=== PATIENT | male | born 1975 | race Two or more races ===

== ENCOUNTER 2019-10-02 02:21 | Emergency (ER) | payer MEDICARE, OTHER ==
[~2019-10-02] VITALS: Ht 167.6 cm; Wt 67.1 kg
--- NOTE | 2019-10-02 02:30 | NUR ---
PT CAME TO THE ED C/O SUICIDAL IDEATION W A PLAN TO STAB HIMSELF. PT ALERT, AMBULATORY, RR EVEN AND UNLABORED ON RA W NAD NOTED. PT CONNECTED TO THE MONITOR AND POX. PT CHANGED INTO GOWN, ITEMS REMOVED. SUICIDE PRECAUTIONS IMPLEMENTED. SITTER AT BEDSIDE FOR SAFETY
--- NOTE | 2019-10-02 02:34 | NUR ---
URINE COLELCTED AND SENT TO LAB
--- NOTE | 2019-10-02 02:50 | NUR ---
Security called for wanding.
[2019-10-02 03:07] LABS: APPEARANCE,URINE Clear (CLEAR); BILIRUBIN,URINE Negative (NEGATIVE); BLOOD, URINE Negative Ery/uL (NEGATIVE); COLOR,URINE Yellow (YELLOW); KETONES,URINE Negative (NEGATIVE); LEUKOCYTE ESTERASE ,URINE Negative (NEGATIVE); NITRITE, URINE Negative (NEGATIVE); PH,URINE 7.5 (5.0-8.0); PROTEIN,URINE Negative (NEGATIVE); UGLUCOSE Negative (NEGATIVE); UROBILINOGEN,URINE 0.2 EU/dL (0.2)
[2019-10-02 03:14] LABS: CALCIUM, SERUM 9.4 mg/dL (8.5-10.1); CARBON DIOXIDE 35 mmol/L (21-32); CHLORIDE 97 mmol/L (98-107); CREATININE 0.9 mg/dL (0.6-1.3); GLUCOSE 110 mg/dL (74-106); POTASSIUM 4.3 mmol/L (3.5-5.1); SODIUM SERUM 136 mmol/L (136-145); UREA NITROGEN, BLOOD 18 mg/dL (7-18)
[2019-10-02 03:16] LABS: BASOPHILS % (AUTO) 0.4 % (0.0-2.0); EOSINOPHILS % (AUTO) 1.1 % (0.0-6.0); HEMATOCRIT 42 % (39-51); HEMOGLOBIN 14.1 g/dL (13.5-17.5); LYMPHOCYTES # (AUTO) 1.2 /CMM (0.8-4.8); LYMPHOCYTES % (AUTO) 11.8 % (20.0-44.0); MEAN CORPUSCULAR HGB CONC 34 g/dl (31.0-36.0); MEAN CORPUSCULAR VOLUME 91 fL (80-96); MONOCYTES # (AUTO) 0.7 /CMM (0.1-1.30); MONOCYTES % (AUTO) 6.7 % (2.0-12.0); PLATELET COUNT (AUTO) 275 /CMM (150-450); RED BLOOD CELL COUNT(AUTO) 4.63 MIL/uL (4.5-6.0)
[2019-10-02 03:18] LABS: ACETAMINOPHEN 0 ug/ml (10-30); ALANINE AMINOTRANSFERASE 43 U/L (12-78); ALBUMIN 3.3 g/dL (3.4-5.0); ALCOHOL, BLOOD < 3 mg/dL (0-0); ALKALINE PHOSPHATASE 67 U/L (46-116); ASPARTATE AMINOTRANSFERASE 49 U/L (15-37); BILIRUBIN,DIRECT 0.1 mg/dL (0.0-0.2); BILIRUBIN,TOTAL 0.5 mg/dL (0.2-1.0); SALICYLATE 0.8 mg/dL (2.8-20.0); TOTAL PROTEIN, SERUM 7.5 g/dL (6.4-8.2)
--- NOTE | 2019-10-02 04:25 | NUR ---
PT AWAKE, RESTING. PT MUMBLING AT BEDSIDE. NO ACUTE DISTRESS NOTED. VSS
--- NOTE | 2019-10-02 05:28 | NUR ---
CLINICALS AND FACESHEET FAXED TO [facility].
--- NOTE | 2019-10-02 05:53 | NUR ---
PT AWAKE, RESTING. PT MUMBLING AT BEDSIDE. NO ACUTE DISTRESS NOTED. VSS
--- NOTE | 2019-10-02 06:12 | NUR ---
RECEIVED CALL FROM [facility]TA[facility]. BEDS AVAILABLE AT 0900. AWAITING CALL FOR ACCEPTING
--- NOTE | 2019-10-02 06:58 | NUR ---
PT ASLEEP AND RESTING COMFORTABLY. NO ACUTE DISTRESS NOTED. VSS
--- NOTE | 2019-10-02 07:00 | NUR ---
PT ACCEPTED TO [facility]. UNIT [address] DR. DE LA FUENTE CHANDRAKANTSK CORE EXTRUDER FOR UNIT 2
--- NOTE | 2019-10-02 07:33 | NUR ---
REPORT GIVEN TO HASEEB CARRASCO RN
--- NOTE | 2019-10-02 07:34 | NUR ---
REPORT GIVEN TO SUGEY ARCHER FOR DAFNE
--- NOTE | 2019-10-02 08:20 | NUR ---
CALLED [facility] FOR TRANSPORT TO [facility]. ETA [phone].
[2019-10-02 09:12] VITALS: BP 124/70
--- NOTE | 2019-10-02 09:12 | NUR ---
breakfast tray provided to patient. tolerated well
--- NOTE | 2019-10-02 09:50 | NUR ---
[facility] UNIT 40 AT BEDSIDE FOR TRANSPORT. PT IN STABLE CONDITION.
--- NOTE | 2019-10-02 09:58 | NUR ---
Patient picked up by [facility] in stable condition. All belongings returned to the patient. Patient will be brought to [facility] is[facility] the care of Dr Wheatley
== END 2019-10-02 09:57 ==
LOC: ER 02:21
DX: R45.851 Suicidal ideations (principal); F32.9 Major depressive disorder, single episode, unspecified; F41.9 Anxiety disorder, unspecified; F20.9 Schizophrenia, unspecified
CPT/HCPCS: 36415; 80048; 80076; 80305; 80307; 80329; 81001; 85025; 99285; G0480; 81000-TC

== ENCOUNTER 2020-07-29 20:52 | Emergency (ER) | payer MEDICARE, OTHER ==
[~2020-07-29] VITALS: Ht 165.1 cm; Wt 68.0 kg
--- NOTE | 2020-07-29 21:25 | NUR ---
bibself +si plan to cut himself -hi. request to go to [facility]. pt aox4 rr even and unlabored. no sob noted. no nvd at this time. no acute distress noted. pt aware and agreed to plan of care. pt appears to be calm and cooperative.
--- NOTE | 2020-07-29 21:30 | NUR ---
urine collected. sent to lab
[2020-07-29 21:39] LABS: BILIRUBIN,URINE SMALL (NEGATIVE); COLOR,URINE YELLOW (YELLOW); LEUKOCYTE ESTERASE ,URINE NEGATIVE (NEGATIVE); NITRITE, URINE NEGATIVE (NEGATIVE); PROTEIN,URINE NEGATIVE (NEGATIVE); UGLUCOSE NEGATIVE (NEGATIVE); UROBILINOGEN,URINE 0.2 EU/dL (0.2)
--- NOTE | 2020-07-29 21:44 | NUR ---
lab with pt for blood draw.
[2020-07-29 21:47] LABS: BACTERIA,URINE None seen /HPF (None Seen); RBC,URINE 0-2 /HPF (0-2); SQUAMOUS EPITHELIAL CELL,UR 0-2 /HPF (None Seen); WBC,URINE 0-2 /HPF (0-3)
--- NOTE | 2020-07-29 21:54 | NUR ---
AROLDOID SWABBED, SENT TO LAB.
[2020-07-29 22:08] LABS: BASOPHILS % (AUTO) 0.7 % (0.0-2.0); EOSINOPHILS % (AUTO) 4.6 % (0.0-6.0); HEMATOCRIT 43 % (39-51); HEMOGLOBIN 14.6 g/dL (13.5-17.5); LYMPHOCYTES # (AUTO) 2.3 /CMM (0.8-4.8); LYMPHOCYTES % (AUTO) 35.1 % (20.0-44.0); MEAN CORPUSCULAR HGB CONC 34 g/dl (31.0-36.0); MEAN CORPUSCULAR VOLUME 91 fL (80-96); MONOCYTES # (AUTO) 0.7 /CMM (0.1-1.30); MONOCYTES % (AUTO) 10.5 % (2.0-12.0); NEUTROPHILS # (AUTO) 3.3 /CMM (1.8-8.9); NEUTROPHILS % (AUTO) 49.1 % (43.0-81.0); PLATELET COUNT (AUTO) 253 /CMM (150-450); WHITE BLOOD COUNT (AUTO) 6.7 K/uL (4.3-11.0)
[2020-07-29 22:22] LABS: ALANINE AMINOTRANSFERASE 62 U/L (12-78); ALBUMIN 3.4 g/dL (3.4-5.0); ALCOHOL, BLOOD 75 mg/dL (0-0); ALKALINE PHOSPHATASE 83 U/L (46-116); ASPARTATE AMINOTRANSFERASE 44 U/L (15-37); BILIRUBIN,DIRECT 0.2 mg/dL (0.0-0.2); BILIRUBIN,TOTAL 0.7 mg/dL (0.2-1.0); CARBON DIOXIDE 27 mmol/L (21-32); CHLORIDE 98 mmol/L (98-107); GLUCOSE 113 mg/dL (74-106); POTASSIUM 3.6 mmol/L (3.5-5.1); SODIUM SERUM 136 mmol/L (136-145); TOTAL PROTEIN, SERUM 7.4 g/dL (6.4-8.2); UREA NITROGEN, BLOOD 17 mg/dL (7-18)
[2020-07-29 22:24] LABS: ACETAMINOPHEN < 10 ug/ml (10-30)
--- NOTE | 2020-07-29 23:25 | NUR ---
Facesheet and clinicals faxed to [facility].
[2020-07-30 00:33] VITALS: BP 138/68
--- NOTE | 2020-07-30 03:30 | NUR ---
Patient eloped from facility. ER MD notified.
== END 2020-07-30 03:30 | disposition left against medical advice (07) ==
LOC: ER 20:55
DX: R45.851 Suicidal ideations (principal); F10.10 Alcohol abuse, uncomplicated; Y90.3 Blood alcohol level of 60-79 mg/100 ml; Z20.822 Contact with and (suspected) exposure to COVID-19; F41.9 Anxiety disorder, unspecified; F20.9 Schizophrenia, unspecified
CPT/HCPCS: 36415; 80048-TC; 80076-TC; 81001; 85025-TC; C9803; G0480

== ENCOUNTER 2020-08-20 18:43 | Emergency (ER) | payer MEDICARE, OTHER ==
[~2020-08-20] VITALS: Ht 167.6 cm; Wt 65.8 kg
--- NOTE | 2020-08-20 18:51 | NUR ---
called in ed waiting room. no response.
[2020-08-20 19:45] LABS: BILIRUBIN,URINE SMALL (NEGATIVE); COLOR,URINE YELLOW (YELLOW); LEUKOCYTE ESTERASE ,URINE Negative (NEGATIVE); NITRITE, URINE Negative (NEGATIVE); PH,URINE 5.5 (5.0-8.0); PROTEIN,URINE 30 mg/dl (NEGATIVE); UGLUCOSE Negative (NEGATIVE); UROBILINOGEN,URINE 0.2 EU/dL (0.2)
[2020-08-20 20:01] LABS: BACTERIA,URINE Rare /HPF (None Seen); RBC,URINE NONE SEEN /HPF (0-2); SQUAMOUS EPITHELIAL CELL,UR Few /HPF (None Seen); WBC,URINE NONE SEEN /HPF (0-3)
[2020-08-20 20:09] LABS: BASOPHILS % (AUTO) 0.7 % (0.0-2.0); EOSINOPHILS % (AUTO) 1.7 % (0.0-6.0); HEMATOCRIT 47 % (39-51); HEMOGLOBIN 15.5 g/dL (13.5-17.5); LYMPHOCYTES # (AUTO) 1.7 /CMM (0.8-4.8); LYMPHOCYTES % (AUTO) 39.9 % (20.0-44.0); MEAN CORPUSCULAR HGB CONC 33 g/dl (31.0-36.0); MEAN CORPUSCULAR VOLUME 94 fL (80-96); MONOCYTES # (AUTO) 0.4 /CMM (0.1-1.30); MONOCYTES % (AUTO) 9.9 % (2.0-12.0); NEUTROPHILS # (AUTO) 2.1 /CMM (1.8-8.9); NEUTROPHILS % (AUTO) 47.8 % (43.0-81.0); PLATELET COUNT (AUTO) 256 /CMM (150-450); RED BLOOD CELL COUNT(AUTO) 4.96 MIL/uL (4.5-6.0); WHITE BLOOD COUNT (AUTO) 4.3 K/uL (4.3-11.0)
[2020-08-20 20:20] LABS: CARBON DIOXIDE 29 mmol/L (21-32); CHLORIDE 100 mmol/L (98-107); CREATININE 0.9 mg/dL (0.6-1.3); GLUCOSE 95 mg/dL (74-106); POTASSIUM 3.9 mmol/L (3.5-5.1); SODIUM SERUM 140 mmol/L (136-145); UREA NITROGEN, BLOOD 8 mg/dL (7-18)
[2020-08-20 20:24] LABS: ALANINE AMINOTRANSFERASE 59 U/L (12-78); ALBUMIN 3.5 g/dL (3.4-5.0); ALCOHOL, BLOOD 107 mg/dL (0-0); ALKALINE PHOSPHATASE 73 U/L (46-116); ASPARTATE AMINOTRANSFERASE 52 U/L (15-37); BILIRUBIN,DIRECT 0.2 mg/dL (0.0-0.2); BILIRUBIN,TOTAL 0.8 mg/dL (0.2-1.0); TOTAL PROTEIN, SERUM 7.5 g/dL (6.4-8.2)
[2020-08-20 20:25] LABS: ACETAMINOPHEN < 2 ug/ml (10-30)
--- NOTE | 2020-08-20 20:44 | NUR ---
BIBSELF C/O SUICIDAL IDEATION WITH PLAN TO STAB HIMSELF. DENIES HI/HALLUCINATIONS AT THIS TIME. AAOX4. VITAL SIGNS STABLE. RESPIRATIONS EVEN AND UNLABORED. AMBULATOY WITH STEADY GAIT. NO ACUTE DISTRESS NOTED AT THIS TIME. SUICIDAL PRECAUTIONS INITIATED. PT PLACED IN GOWN, BELONGINGS COLLECTED AND LOCKED IN PATIENT LOCKER. SITTER AT BEDSIDE. WILL CONTINUE TO MONITOR.
--- NOTE | 2020-08-20 21:43 | NUR ---
CLINICAL AND FACESHEET FAXED TO [facility] FOR VOLUNTARY PSYCH ADMISSION.
--- NOTE | 2020-08-20 22:26 | NUR ---
TRANSFER INFO: PT ACCEPTED TO [facility] ACCEPTING MD: DR. PAIGE NUMBER FOR REPORT: [phone] BED ASSIGNMENT: UNIT 1
--- NOTE | 2020-08-20 22:30 | NUR ---
[facility] ETA 20-30 MINUTES
[2020-08-20 22:31] VITALS: BP 149/75
--- NOTE | 2020-08-20 22:36 | NUR ---
REPORT GIVEN TO SUGEY VILLAREAL FROM [facility] FOR DAFNE
--- NOTE | 2020-08-20 23:13 | NUR ---
REPORT GIVEN TO [facility] FOR TRANSPORTATION DAFNE
== END 2020-08-20 23:26 ==
LOC: ER 18:58
DX: R45.851 Suicidal ideations (principal); F25.9 Schizoaffective disorder, unspecified; F10.129 Alcohol abuse with intoxication, unspecified; F12.10 Cannabis abuse, uncomplicated; Y90.5 Blood alcohol level of 100-119 mg/100 ml; Z82.49 Family history of ischemic heart disease and other diseases of the circulatory system; F32.9 Major depressive disorder, single episode, unspecified; Z20.822 Contact with and (suspected) exposure to COVID-19
CPT/HCPCS: 36415; 80048-TC; 80076-TC; 81001; 85025-TC; C9803; G0480

== ENCOUNTER 2021-04-27 03:31 | Emergency (ER) | payer OTHER ==
[~2021-04-27] VITALS: Ht 167.6 cm; Wt 68.0 kg
--- NOTE | 2021-04-27 04:10 | NUR ---
CALLED FOR TRIAGE, NOT IN THE WAITING ROOM.
[2021-04-27 04:24] VITALS: BP 155/90
--- NOTE | 2021-04-27 04:30 | NUR ---
BIBS C/O HAVING S/I WITH PLAN TO JUMP IN FRONT OF TRAFFIC. SEEKING VOLUNTARY ADMISSION TO [facility]. PT ALERT AND ORIENTED X3. AMBULATORY WITH NON LABORED BREATHING.
[2021-04-27 04:41] LABS: BASOPHILS # (AUTO) 0.1 K/uL (0.0-0.2); BASOPHILS % (AUTO) 0.7 % (0.0-2.0); EOSINOPHILS % (AUTO) 0.6 % (0.0-6.0); HEMATOCRIT 43 % (39-51); HEMOGLOBIN 14.9 g/dL (13.5-17.5); LYMPHOCYTES # (AUTO) 2.5 K/uL (0.8-4.8); LYMPHOCYTES % (AUTO) 22.5 % (20.0-44.0); MEAN CORPUSCULAR HGB CONC 34 g/dl (31.0-36.0); MEAN CORPUSCULAR VOLUME 92 fL (80-96); MONOCYTES % (AUTO) 8.7 % (2.0-12.0); NEUTROPHILS # (AUTO) 7.6 K/uL (1.8-8.9); NEUTROPHILS % (AUTO) 67.5 % (43.0-81.0); PLATELET COUNT (AUTO) 302 K/uL (150-450); RED BLOOD CELL COUNT(AUTO) 4.72 MIL/uL (4.5-6.0); WHITE BLOOD COUNT (AUTO) 11.3 K/uL (4.3-11.0)
[2021-04-27 04:47] LABS: CALCIUM, SERUM 9.3 mg/dL (8.5-10.1); POTASSIUM 5.2 mmol/L (3.5-5.1)
[2021-04-27 04:53] LABS: ALBUMIN 3.7 g/dL (3.4-5.0); BILIRUBIN,DIRECT 0.1 mg/dL (0.0-0.2); BILIRUBIN,TOTAL 0.2 mg/dL (0.2-1.0); TOTAL PROTEIN, SERUM 7.8 g/dL (6.4-8.2)
[2021-04-27 05:04] LABS: BILIRUBIN,URINE Negative (NEGATIVE); COLOR,URINE YELLOW (YELLOW); LEUKOCYTE ESTERASE ,URINE Negative (NEGATIVE); NITRITE, URINE Negative (NEGATIVE); PH,URINE 5.5 (5.0-8.0); PROTEIN,URINE Negative (NEGATIVE); UGLUCOSE Negative (NEGATIVE); UROBILINOGEN,URINE 0.2 EU/dL (0.2)
--- NOTE | 2021-04-27 07:01 | NUR ---
CALLED FOR PATIENT IN WAITING ROOM BUT NOT THERE.
--- NOTE | 2021-04-27 07:03 | NUR ---
PATIENT DEEPALI. AWARE
[2021-04-27] MEDS ORDERED: QUET400T PO (08:47)
[2021-04-27] MEDS ORDERED: QUET200T PO (08:47)
[2021-04-27] MEDS ORDERED: BUSP15TA3 PO (08:47)
[2021-04-27] MEDS ORDERED: BUPR-54 PO (08:47)
== END 2021-04-27 07:05 | disposition left against medical advice (07) ==
LOC: ER 03:35
DX: R45.851 Suicidal ideations (principal); F20.9 Schizophrenia, unspecified; Z82.49 Family history of ischemic heart disease and other diseases of the circulatory system; I10 Essential (primary) hypertension; Z20.822 Contact with and (suspected) exposure to COVID-19; F29 Unspecified psychosis not due to a substance or known physiological condition; Z53.29 Procedure and treatment not carried out because of patient's decision for other reasons
CPT/HCPCS: 36415; 80048; 80076; 80143; 80307; 80320; 81003; 85025; 87426; 99285; C9803; G0480

== ENCOUNTER 2021-04-27 07:59 | Emergency (ER) | payer OTHER ==
[~2021-04-27] VITALS: Ht 167.6 cm; Wt 68.0 kg
--- NOTE | 2021-04-27 08:11 | NUR ---
Patient came in to the er c/o +Si "i want to cut my wrist", denies HI. On room air, kept comfortable, will continue to monitor accordingly.
[2021-04-27] MEDS ORDERED: QUETIAPINE FUMARATE 25 MG TABLET ONE (08:17)
[2021-04-27] MEDS: QUETIAPINE FUMARATE 100 MG TABLET PO STA (08:37)
[2021-04-27] MEDS ORDERED: BUPR-54 PO (08:47)
[2021-04-27] MEDS ORDERED: QUET400T PO (08:47)
[2021-04-27] MEDS ORDERED: BUSP15TA3 PO (08:47)
[2021-04-27] MEDS ORDERED: QUET200T PO (08:47)
[2021-04-27 09:36] VITALS: BP 130/77
--- NOTE | 2021-04-27 12:18 | NUR ---
SS Consult: SS Consult requested for SI, drug abuse & homelessness. The pt. is a 45- year old male who presents to ED with C/O SI & HI for the past few days with no plan and no specific person he has thoughts of hurting. The pt. appears unkempt is A&O X4 and makes poor eye contact. The pt. has blood shot eyes. Pt.'s mood is elevated and restless. Pt. states he has auditory and visual Hallucinations. RIGOBERTO offered pt. voluntary admission to a psych facility for treatment and pt. is agreeable. RIGOBERTO explored pt.'s mental health Hx. Pt. states he has been diagnosed in the past with a mental illness and pt. refused to answer. RIGOBERTO explored pt.'s living situation. Pt. admits he has been experiencing homelessness and states he stays at [place] [facility] but ran out of medication for his mental health. RIGOBERTO explored pt.'s drug & ETOH use. Patient stated he uses drugs "anything I can get my hands on" daily. Pt. stated he uses Cannabinoids and alcohol daily. RIGOBERTO provided addiction resources and he accepted them. Pt. states he is ambulatory. RIGOBERTO explored pt.'s support system. Pt. states he has no support system. Pt. states he receives Food stamps & General Relief. Plan: RIGOBERTO will check on status ofreferral pt. to [facility] for inpatient psychiatric treatment. Pt. refused signed homeless waiver and it was placed in the chart. RIGOBERTO provided pt. with homeless, and mental health resources and he accepted them : Year-round shelters: [facility] [place] [address] [place] [address] ; [facility] [place] [address] [place] [address]; [facility] Egmmkrs[address] [facility] [address] Winter Shelters: Johnny Moses Provider: [facility] [place] Address: [address], [address] # of Beds: 47 Population Served: [facility] 6 | [facility] Terri Sesay [place] Provider: [facility] Address: [address] [facility], [address] # of Beds: 66 Population Served: [facility] [place] Provider: First to Serve Address: [address] [facility], [address] # of Beds: 56 Population Served: Medardo [place] Provider: /Ms. [facility] Address: [address] [facility], [address] # of Beds: 49 Population Served: [facility] SPA 8 | [facility] Provider: First to Serve Address: [address] [facility], [address] # of Beds: 37 Population Served: [facility] Hygiene: [facility]: [address] [address] ; [place] [facility] [address] [facility] ; [facility] 7873 [facility] . Food Resources: [place] [facility] at [facility]- [address] [facility]; Meet Each Need with Dignity ([facility]) [address] [facility]; [facility] Food Pantry 4[address] [facility]; [facility] 8551 [facility]. Mental Health resources provided: [facility] [address] [place], [place] [id number] ; [facility] [address] [facility] [address], [place], [place] [id number] ; [place] [facility]ie [facility] [address] [place] [address] ; [facility] [address] [place], [place] [phone] Healthcare Clinics: [facility] [address] [facility], [address] [place]. [place] ; [facility] [address] [facility] [address] [place] [address]; [facility] [address] [facility]. [place] [address] [phone] Counseling--Outpatient [facility] [address] [place], [place] [address] (Specializes in in-depth psychotherapy for emotional distress: anxiety, depression, interpersonal conflicts, life transitions, childhood abuse) [facility] Guidance Center [address] [place], [place] [phone] (Assist with solving problem marital difficulties, separation & divorce, aging parents, & grief, chronic & terminal illness) [facility] [address] [place] [address] (Deal with loss & grief, anxiety, marital difficulties) Homebound/Mental Health Services [address] [facility] [address] [place] [address] (Provide in-home mental services to people who are incapable of leaving their homes) Organization for Needs of the Elderly Senior Service/Resource Center [address] [place] [address] [facility] [place] [address] [place] [address] PSYCHIATRIC OUTPATIENT SERVICES [facility] Partial Hospitalization and Intensive Outpatient Program (Managed Care and [place] Only)[address] [facility] [phone] [facility] Partial Hospitalization and Outpatient Oxbkawr69973 [facility] [address] [place], [place] [phone] [facility] Jns[address] [facility] [address] [place], [place] [phone] [facility] Partial Hospitalization and Outpatient Sggenod31567 [place], [phone] Substance Abuse resources provided included: [facility] Substance Abuse Self-Helpline (SAS) ; CRI -HELP [address] BrewsterCounts include 234 beds at the [facility] [phone] ; [facility] [place] [address] [facility] [address] ; [facility] [address] [facility]. [facility] [address] ; [facility] [address] [facility] [address] ; [facility] [address] [facility] [address] ; [facility] [address] [facility] [address] ; [facility] Substance Abuse Helpline([facility] ; [facility] Family Counseling ; [facility] [place]; [facility] [place]; [facility] [place]; [facility] [place]; [facility] [place]; [facility] [place]; [facility]; [facility]'s [place] [place]; Alcoholics Anonymous -SFV; Qb-Oyqe-Uazovbc ; Marijuana Anonymous -SFV; Narcotics Anonymous www.na.org;
--- NOTE | 2021-04-27 13:56 | NUR ---
Per [facility] request SW refaxed clinicals to [facility] [[address] [place] [address] FAX:[phone]] for inpatient psychiatric treatment.
--- NOTE | 2021-04-27 17:11 | NUR ---
Patient eloped from facility. ER MD notified.
== END 2021-04-27 17:11 | disposition left against medical advice (07) ==
LOC: ER 08:04
DX: F29 Unspecified psychosis not due to a substance or known physiological condition (principal); R45.851 Suicidal ideations; F10.129 Alcohol abuse with intoxication, unspecified; F12.10 Cannabis abuse, uncomplicated; F20.9 Schizophrenia, unspecified; F32.9 Major depressive disorder, single episode, unspecified; F41.9 Anxiety disorder, unspecified; Z79.899 Other long term (current) drug therapy; Y90.5 Blood alcohol level of 100-119 mg/100 ml
CPT/HCPCS: 36415; G0480

== ENCOUNTER 2021-05-20 17:32 | Emergency (ER) | payer OTHER ==
[~2021-05-20] VITALS: Ht 167.6 cm; Wt 70.3 kg
[~2021-05-20 17:32] MED LIST: BUPR-54 PO; BUSP15TA3 PO; QUET200T PO; QUET400T PO
--- NOTE | 2021-05-20 17:53 | NUR ---
NIKITA SOD FARMER AT BEDSIDE FOR EVAL.
--- NOTE | 2021-05-20 18:25 | NUR ---
PICKED UP VIA GURNEY BY [employer] SUPERVISOR FOR CT SCAN
[2021-05-20 19:28] VITALS: BP 116/70
--- NOTE | 2021-05-20 19:28 | NUR ---
Patient discharged to home in stable condition. Written and verbal after care instructions given. Patient verbalizes understanding of instruction.
== END 2021-05-20 19:30 | disposition home or self-care (01) ==
LOC: ER 17:38
DX: S02.85XA Fracture of orbit, unspecified, initial encounter for closed fracture (principal); S09.90XA Unspecified injury of head, initial encounter; F20.9 Schizophrenia, unspecified; F32.9 Major depressive disorder, single episode, unspecified; F41.9 Anxiety disorder, unspecified; Z79.899 Other long term (current) drug therapy; Z59.00 Homelessness unspecified; W22.8XXA Striking against or struck by other objects, initial encounter; Y93.89 Activity, other specified; Y92.89 Other specified places as the place of occurrence of the external cause; Y99.8 Other external cause status
CPT/HCPCS: 70450-TC

== ENCOUNTER 2022-10-27 18:55 | Inpatient (IN) | payer OTHER ==
[~2022-10-27] VITALS: Ht 165.1 cm; Wt 68.9 kg
--- NOTE | 2022-10-27 19:40 | NUR ---
MU FROM [facility], PT FOR PSYCHE EVAL. HAS SUICIDAL IDIATION BY PLAN TO CUT SELF WITH KNIFE, HEARING VOICES. VS STABLE. SAFETY MEASURES IN PLACE. WILL CONTINUE TO MONITOR.
[2022-10-27 20:24] LABS: BASOPHILS % (AUTO) 0.5 % (0.0-2.0); EOSINOPHILS % (AUTO) 7.1 % (0.0-6.0); HEMATOCRIT 42 % (39-51); HEMOGLOBIN 13.7 g/dL (13.5-17.5); LYMPHOCYTES # (AUTO) 2.4 K/uL (0.8-4.8); LYMPHOCYTES % (AUTO) 32.9 % (20.0-44.0); MEAN CORPUSCULAR HGB CONC 33 g/dl (31.0-36.0); MEAN CORPUSCULAR VOLUME 91 fL (80-96); MONOCYTES # (AUTO) 0.6 K/uL (0.1-1.30); MONOCYTES % (AUTO) 7.7 % (2.0-12.0); NEUTROPHILS # (AUTO) 3.8 K/uL (1.8-8.9); NEUTROPHILS % (AUTO) 51.8 % (43.0-81.0); PLATELET COUNT (AUTO) 284 K/uL (150-450); RED BLOOD CELL COUNT(AUTO) 4.61 MIL/uL (4.5-6.0); WHITE BLOOD COUNT (AUTO) 7.3 K/uL (4.3-11.0)
[2022-10-27 20:41] LABS: CALCIUM, SERUM 8.3 mg/dL (8.5-10.1); CARBON DIOXIDE 27 mmol/L (21-32); CHLORIDE 102 mmol/L (98-107); GLUCOSE 106 mg/dL (74-106); POTASSIUM 3.5 mmol/L (3.5-5.1); SODIUM SERUM 136 mmol/L (136-145); UREA NITROGEN, BLOOD 8 mg/dL (7-18)
[2022-10-27 20:50] LABS: ALANINE AMINOTRANSFERASE 35 U/L (12-78); ALBUMIN 3.2 g/dL (3.4-5.0); ALKALINE PHOSPHATASE 83 U/L (46-116); ASPARTATE AMINOTRANSFERASE 32 U/L (15-37); BILIRUBIN,DIRECT 0.1 mg/dL (0.0-0.2); BILIRUBIN,TOTAL 0.4 mg/dL (0.2-1.0); TOTAL PROTEIN, SERUM 6.7 g/dL (6.4-8.2)
[2022-10-27 20:51] LABS: ALCOHOL, BLOOD < 3 mg/dL (0-0)
[2022-10-27 21:19] LABS: BILIRUBIN,URINE NEGATIVE (NEGATIVE); COLOR,URINE YELLOW (YELLOW); LEUKOCYTE ESTERASE ,URINE NEGATIVE (NEGATIVE); NITRITE, URINE NEGATIVE (NEGATIVE); PH,URINE 6.5 (5.0-8.0); PROTEIN,URINE NEGATIVE (NEGATIVE); UGLUCOSE NEGATIVE (NEGATIVE); UROBILINOGEN,URINE 0.2 EU/dL (0.2)
--- NOTE | 2022-10-27 22:19 | NUR ---
CRISIS TEAM ART PAGED ON THE WAY - NO ETA
[2022-10-27] MEDS ORDERED: QUETIAPINE FUMARATE 100 MG TABLET ONE (22:30)
[2022-10-27] MEDS ORDERED: QUETIAPINE FUMARATE 100 MG TABLET PO ONE (22:30)
--- NOTE | 2022-10-27 23:46 | NUR ---
ART CRISIS TEAM IN ED DEPT FOR EVAL
--- NOTE | 2022-10-28 | NUR ---
ART CRISIS TEAM RESUMED 5150 HOLD DTS 10/27/22 5420
--- NOTE | 2022-10-28 10:12 | NUR ---
FAXED HOLD TO [employer] ASSEMBLER AT [phone]
--- NOTE | 2022-10-28 11:41 | NUR ---
PATIENT WILL BE ADMITTED TO GPS PER MACI
--- NOTE | 2022-10-28 12:01 | NUR ---
SUBMITTED MOVE SHEET
--- NOTE | 2022-10-28 12:37 | NUR ---
ROOM 215-B , ADMITTING AWARE. TRANSFER PATIENT AT 1300
--- NOTE | 2022-10-28 12:55 | NUR ---
HANDOFF REPORT GIVEN TO ARABELLA IN GPS
[2022-10-28] MEDS ORDERED: busPIRone 5 MG TABLET PO SCH (13:00)
[2022-10-28] MEDS ORDERED: QUETIAPINE FUMARATE 100 MG TABLET PO SCH ×2 (13:00→21:00)
--- NOTE | 2022-10-28 13:40 | NUR ---
Inocente thorpe in [facility] - 10/28/22 at 1340 by VESTA Patient discharged to home in stable condition. Written and verbal after care instructions given. Patient verbalizes understanding of instruction.
--- NOTE | 2022-10-28 13:40 | NUR ---
MOVED TO INPATIENT ROOM SAFELY PER PROTOCOL
--- NOTE | 2022-10-28 13:55 | NUR ---
FOURCHETTE SEWER NOTE: RECEIVED PT FROM ER. PER PT HE CAME FROM [facility] IN [place]. PT ARRIVED IN THE UNIT AT 1355 VIA GURNEY WITH 1 EMT ESCORT. PT ADMITTED FOR DANGER TO SELF. PER PT HE WAS HEARING VOICES AND TELLING HIM TO CUT HIMSELF IN THE WRIST. THE DANGER TO SELF WAS REVIEWED AND THE DOCUMENTATION IN THE HOLD APPEARS TO REFLECT THE PRESENTATION OF THE PATIENT. UPON FACE TO FACE ASSESSMENT PATIENT IS NOTED TO BEING HYPERVERBAL, AND DEMANDING AND NEEDS REDIRECTION. PT NO S/S OF RESP DISTRESS. BREATHING EVEN AND UNLABORED. PT IS AOX3 ON ROOM AIR. PT ASSISTED WITH REPOSITIONING Q2H AND PRN FOR COMFORT AND GOOD CIRCULATION. PT HAS NO NEEDS AT THIS TIME. PT DENIES SI AND HI AT THIS TIME.PT ADVISED OF HIS H0LD AND PT RIGHTS BOOKLET GIVEN.PT IS UNDER THE CARE OF DR HAWKINS (NOTIFIED) AND THE MEDICAL CARE OF OF DR. YOHANA IBARRA (NOTIFIED) .PT BELONGINGS INVENTORIED AND CHECKED FOR CONTRABAND. ALL CONTRABAND REMOVED AND STORED IN PT HALLWAY LOCKER. PT ORIENTED TO ROOM, FLOOR AND STAFF WITH ALL QUESTIONS ANSWERED.PT EDUCATED ON THE USE OF CALL JORDAN. BED SR UP X2. BED IS LOCKED LOW AND LOW. I WILL CONT TO MONITOR THIS PT Q15 MIN WITH THE HELP OF STAFF TO MAINTAIN SAFETY.
[2022-10-28] MEDS ORDERED: MAGNESIUM HYDROXIDE 30 ML UDC PO PRN (14:30)
[2022-10-28] MEDS ORDERED: ACETAMINOPHEN 325 MG TABLET PO PRN (14:30)
[2022-10-28] MEDS ORDERED: LORAZEPAM 0.5 MG TABLET PO PRN (14:30)
[2022-10-28] MEDS ORDERED: TEMAZEPAM 7.5 MG CAPSULE PO PRN (14:30)
[2022-10-28] MEDS ORDERED: MAG HYDROX/AL HYDROX/SIMETH 30 ML UDC PO PRN (14:30)
[2022-10-28] MEDS ORDERED: BLOOD SUGAR DIAGNOSTIC 1 EACH STRIP IN ONE (14:30)
--- NOTE | 2022-10-28 14:30 | NUR ---
GPS RN NOTE: PT REFUSED BLOOD SUGAR CHECK. PER PATIENT "IM NOT DIABETIC". EXPLAINED TO PT THAT ITS THE POLICY AND PROCEDURE. PT CONTINUE TO REFUSE "IM NOT DIABETIC AND I DONT WANT IT". MADE AWARE.4
[2022-10-28 14:44] VITALS: BP 138/94
--- NOTE | 2022-10-28 14:57 | NUR ---
RIGOBERTO Clinical Note: Pt placed on a 5150 hold for danger to self. Pt was brought in to the hospital due to having suicidal ideation. Patient resides at [facility] located at [address] [place] [address]; ([phone]). Pt has no supportive contact. Pt would want to return back to [facility].
--- NOTE | 2022-10-28 14:57 | NUR ---
RIGOBERTO Initial Discharge Note: Patient resides at [facility] ([facility]) located at [address] [place] [address]; ([phone]). Pt has no supportive contact. Pt would want to return back to [facility]. RIGOBERTO will work with the MD and pt to help coordinate appropriate discharge.
[2022-10-28 16:00] VITALS: BP 126/72
[2022-10-28] MEDS: QUETIAPINE FUMARATE 100 MG TABLET PO SCH ×2 (16:55→20:30)
[2022-10-28] MEDS: busPIRone 5 MG TABLET PO SCH (16:55)
[2022-10-28 20:00] VITALS: BP 122/56
--- NOTE | 2022-10-29 06:07 | NUR ---
CALM, COOPERATIVE, SLEPT THROUGH THE NIGHT, TOOK SEROQUEL SCHEDULED, KEPT SAFE, WILL CONTINUE TO MONITOR.
--- NOTE | 2022-10-29 07:15 | NUR ---
Received patient asleep but arousable. Safety protocol in placed, will continue to monitor the patient
[2022-10-29 08:00] VITALS: BP 116/58
[2022-10-29] MEDS: QUETIAPINE FUMARATE 100 MG TABLET PO SCH ×4 (09:28→21:29)
[2022-10-29] MEDS: busPIRone 5 MG TABLET PO SCH ×3 (09:28→16:17)
[2022-10-29 09:31] LABS: ALBUMIN 2.8 g/dL (3.4-5.0); BILIRUBIN,TOTAL 0.5 mg/dL (0.2-1.0); CALCIUM, SERUM 9.1 mg/dL (8.5-10.1); POTASSIUM 4.3 mmol/L (3.5-5.1); TOTAL PROTEIN, SERUM 6.3 g/dL (6.4-8.2)
--- NOTE | 2022-10-29 09:45 | NUR ---
Patient awake, impatiently asking for his medications until patient turned verbally abusive to medical staff, medications given, will continue to monitor the patient
--- NOTE | 2022-10-29 09:50 | NUR ---
Pt. is highly agitated, aggressive, screaming and yelling, verbally abusive,making comments to staff threatening staffs. Notified Dr. Prince and ordered Zyprexa 10 mg IM.
[2022-10-29] MEDS ORDERED: OLANZAPINE 10 MG VIAL IM ONE (10:00)
--- NOTE | 2022-10-29 10:07 | NUR ---
Per pt. he he is allergy on Zyprexa and had a bad reaction on that med and agreed for an Ativan IM. Dr. Prince made aware and d/c the Zyprexa and ordered Ativan 1 mg IM.
[2022-10-29] MEDS ORDERED: LORAZEPAM INJ 2 MG/ML VIAL IM ONE (10:30)
[2022-10-29 16:00] VITALS: BP 114/60
--- NOTE | 2022-10-29 18:28 | NUR ---
Patient asleep but arousable, compliant with his medications during shift, safety protocol in placed, will be endorsed to pm shift nurse for jose
[2022-10-29 20:00] VITALS: BP 134/63
--- NOTE | 2022-10-30 07:18 | NUR ---
RN NOTES -RECEIVED PT IN HIS BED COVERED IN BLANKET, ALERT, ORIENTED, VERBALLY RESPONSIVE, CALM, APPEARS WITHDRAWN AND CONFUSED. PT IS WHEN HE CAN TAKE A SHOWER. NOT IN ANY ACUTE DISTRESS. WILL CONTINUE TO MONITOR.
[2022-10-30] MEDS: QUETIAPINE FUMARATE 100 MG TABLET PO SCH ×4 (08:30→22:32)
[2022-10-30] MEDS: busPIRone 5 MG TABLET PO SCH ×3 (08:30→17:20)
--- NOTE | 2022-10-30 11:52 | NUR ---
RN NOTES - PT MOVED TO ROOM 220 A, PATIENT WAS COOPERATIVE
[2022-10-30] MEDS: DIVALPROEX SODIUM 250 MG TABLET.DR PO SCH ×2 (12:53→16:41)
--- NOTE | 2022-10-30 19:03 | NUR ---
RN CLOSING NOTES PATIENT IS LYING IN BED, AWAKE. CALM, NOT COMBATIVE, NOT SHOWING ANY SIGNS/SYMPTOMS OF ACUTE DISTRESS. ALL DUE MEDS GIVEN, ALL NEEDS MET AND KEPT PT SAFE. WILL ENDORSE TO ONION TIER NURSE.
--- NOTE | 2022-10-31 06:30 | NUR ---
END OF SHIFT REPORT Patient in bed, Alert Oriented x3. Good appetite, compliant with medication. No episode of agitation during the night, calm. Hours of sleep 8. Will endorse to oncoming RN.
[2022-10-31 08:00] VITALS: BP 144/90
[2022-10-31] MEDS: busPIRone 5 MG TABLET PO SCH ×3 (08:53→16:07)
[2022-10-31] MEDS: DIVALPROEX SODIUM 250 MG TABLET.DR PO SCH ×4 (08:53→16:07)
[2022-10-31] MEDS: QUETIAPINE FUMARATE 100 MG TABLET PO SCH ×4 (08:53→21:11)
--- NOTE | 2022-10-31 11:34 | NUR ---
UR Note: Per intake, pt authorized until dc. Casandra HOLLEY P:[phone] F:[phone]
[2022-10-31] MEDS: LORAZEPAM 1 MG TABLET PO PRN (11:49)
--- NOTE | 2022-10-31 11:49 | NUR ---
RN- NOTES LORAZEPAM ADMINISTERED DUE TO PATIENT INCREASED AGITATION, PACING, AND VERBALIZING FEELINGS OF INCREASED ANXIETY.
[2022-10-31 16:00] VITALS: BP 127/73
--- NOTE | 2022-10-31 18:39 | NUR ---
RN- CLOSING NOTES PATIENT AWAKE, RESTING IN BED, BREATHING EVEN AND NON LABORED WITH NO S/S OF DISTRESS. PATIENT IS COOPERATIVE, GUARDED, QUIET, AND ANXIOUS. PATIENT IS MEDICATION COMPLIANT. DENIES SI/HI AT THIS TIME. WILL CONTINUE TO MONITOR Q 15 MINUTES FOR SAFETY AND BEHAVIOR.
[2022-10-31 20:21] VITALS: BP 110/69
--- NOTE | 2022-11-01 07:36 | NUR ---
RN NOTES PT IN BED, SLEEPING COMFORTABLY, AROUSABLE BY NAME, NO COMPLAINT, NO BEHAVIOR ISSUES AT THIS TIME, NEEDS ATTENDED.
[2022-11-01 08:00] VITALS: BP 102/60
[2022-11-01] MEDS: DIVALPROEX SODIUM 250 MG TABLET.DR PO SCH ×2 (08:19→08:22)
[2022-11-01] MEDS: QUETIAPINE FUMARATE 100 MG TABLET PO SCH ×4 (08:19→20:40)
[2022-11-01] MEDS: busPIRone 5 MG TABLET PO SCH ×3 (08:20→17:03)
--- NOTE | 2022-11-01 09:32 | NUR ---
RN NOTES PT REFUSED DEPAKOTE TODAY, EDUCATION PROVIDED REGARDING MED, PT STILL REFUSED, STATES THAT HE FEELS FUNNY WHEN HE TAKES IT, DR. HAWKINS INFORMED.
--- NOTE | 2022-11-01 13:20 | NUR ---
UR Note: Per intake, pt authorized until dc. Casandra HOLLEY P:[phone] F:[phone] RIGOBERTO sent updated clinicals.
--- NOTE | 2022-11-01 14:20 | NUR ---
RIGOBERTO Coordination of Care: Patient will follow up with primary doctor, Dr. Vega located at [address] [place] [address]; on November 10 at 9:30AM
[2022-11-01 16:00] VITALS: BP 105/67
--- NOTE | 2022-11-01 18:48 | NUR ---
RN NOTES PT IN BED, RESTING, NO COMPLAINT AT THIS TIME, NO BEHAVIOR ISSUES NOTED, COMPLIANT WITH MEDICATION, WITH GOOD ORAL INTAKE, ALL NEEDS ATTENDED.
[2022-11-01 20:30] VITALS: BP 117/62
[2022-11-02 08:00] VITALS: BP 105/62
[2022-11-02] MEDS: QUETIAPINE FUMARATE 100 MG TABLET PO SCH ×4 (08:08→21:04)
[2022-11-02] MEDS: busPIRone 5 MG TABLET PO SCH ×3 (08:08→16:08)
[2022-11-02] MEDS: LORAZEPAM 1 MG TABLET PO PRN (11:38)
--- NOTE | 2022-11-02 11:40 | NUR ---
RN NOTES PT COMPLAINED THAT HE'S ANXIOUS AND REQUESTED FOR ATIVAN. PRN ATIVAN 1MG GIVEN AT 1139. WILL CONTINUE TO MONITOR PT.
[2022-11-02] MEDS: GABAPENTIN 100 MG CAPSULE PO SCH ×2 (12:08→16:08)
[2022-11-02 16:00] VITALS: BP 121/65
[2022-11-02 20:37] VITALS: BP 120/65
[2022-11-03 08:00] VITALS: BP 99/53
[2022-11-03] MEDS: GABAPENTIN 100 MG CAPSULE PO SCH ×3 (08:11→16:02)
[2022-11-03] MEDS: QUETIAPINE FUMARATE 100 MG TABLET PO SCH ×4 (08:11→21:07)
[2022-11-03] MEDS: busPIRone 5 MG TABLET PO SCH ×3 (08:11→16:03)
--- NOTE | 2022-11-03 09:45 | NUR ---
RN Notes: Received pt. asleep in bed, breathing is even and unlabored. Ate 100% for breakfast and compliant on meds. Pt. is cooperative with staff, hearing voices and can not elaborate the voices and guarded upon approached. Encouraged to verbalize feelings and motivated to attend group activity. Needs attended and will continue to monitor for safety.
--- NOTE | 2022-11-03 11:34 | NUR ---
Court Notification: Pt does not have any supportive contact to notify of [phone].
--- NOTE | 2022-11-03 11:35 | NUR ---
Court Hearing: Patient's court hearing for 0020 was today and it was upheld for GD.
--- NOTE | 2022-11-03 11:35 | NUR ---
Social Work Note/Substance Abuse Intervention: Patient was provided with a brief substance abuse intervention and referred to [facility] ([phone]), [facility] ([phone]), and [facility] ([phone]) for abusing drugs.
[2022-11-03 16:00] VITALS: BP 109/58
[2022-11-03] MEDS: LORAZEPAM 1 MG TABLET PO PRN (19:28)
--- NOTE | 2022-11-03 19:29 | NUR ---
RN NOTES: ANXIETY PT.PACING IN THE HALLWAY ,ANXIOUS RESTLESS PARANOID,NEEDS FREQUENTLY REDIECTIONS, PRN ATIVAN 1 MG PO GIVEN PER PT. REQUEST,WILL CONTINUE TO MONITOR.
[2022-11-03 20:00] VITALS: BP 127/69
--- NOTE | 2022-11-03 20:10 | NUR ---
RN NOTES: PATIENT WALKING IN THE HALLWAY . A/OX2. NO S/SX OF ACUTE DISTRESS NOTED. PATIENT IS ANXIOUS , GUARDED , PARANOID,HYPERVERBAL ,NEEDY DEMANDING, EASILY GETS ANGRY . NEEDS FREQUENTLY REDIRECTIONS ALL NEEDS ATTENDED AND ANTICIPATED. ENCOURAGED TO VERBALIZED ANY FEELING OR CONCERN ,SAFETY PRECAUTIONS MAINTAINED. WILL CONTINUE TO MONITOR Q15MIN ROUNDS FOR SAFETY.
[2022-11-04 08:00] VITALS: BP 104/59
[2022-11-04] MEDS: QUETIAPINE FUMARATE 100 MG TABLET PO SCH ×4 (08:18→20:37)
[2022-11-04] MEDS: busPIRone 5 MG TABLET PO SCH ×3 (08:18→16:15)
[2022-11-04] MEDS: GABAPENTIN 100 MG CAPSULE PO SCH ×3 (08:18→16:14)
--- NOTE | 2022-11-04 09:08 | NUR ---
RIGOBERTO EARLY DISCHARGE ENTRY 11/05/2022: Patient will discharge to [facility] ([facility]) located at [address] [place] [address]; ([phone]). Please give pt bus pass. Pt does not have any supportive contact. Pt is alert and oriented x3. Pt denies suicidal or homicidal ideation. Pt denies visual/auditory hallucinations. Pt happy to be going back to his [facility]. Patient will follow up with primary doctor, Dr. [place] [address] [place] [address]; on November 10 at 9:30AM who will provide and monitor patients psychotropic medications. Patient refused to sign the homeless waiver upon discharge and a copy was placed in the chart. Homeless resources were provided and include 211 information line for shelters and homeless resources. A copy of all resources given to patient was also placed in the chart.
[2022-11-04] MEDS: LORAZEPAM 1 MG TABLET PO PRN (11:14)
[2022-11-04 16:00] VITALS: BP 104/58
--- NOTE | 2022-11-04 19:42 | NUR ---
RN NOTES: PATIENT RESTING IN ROOM. A/OX2. NO S/SX OF ACUTE DISTRESS NOTED. PATIENT IS ANXIOUS , GUARDED , PARANOID,HYPERVERBAL ,NEEDY DEMANDING, EASILY GETS ANGRY . NEEDS FREQUENTLY REDIRECTIONS ALL NEEDS ATTENDED AND ANTICIPATED. ENCOURAGED TO VERBALIZED ANY FEELING OR CONCERN ,SAFETY PRECAUTIONS MAINTAINED. WILL CONTINUE TO MONITOR Q15MIN ROUNDS FOR SAFETY.
[2022-11-04 20:00] VITALS: BP 115/63
[2022-11-05 08:00] VITALS: BP 113/63
[2022-11-05] MEDS: QUETIAPINE FUMARATE 100 MG TABLET PO SCH (08:28)
[2022-11-05] MEDS: GABAPENTIN 100 MG CAPSULE PO SCH (08:28)
[2022-11-05] MEDS: busPIRone 5 MG TABLET PO SCH (08:28)
--- NOTE | 2022-11-05 08:45 | NUR ---
Dr. Yin gave an order to [facility] and to follow up with the primary doctor. Psychiatrist provided a prescriptions upon discharge. Neal Sigala SOFTWARE APPLICATIONS DEVELOPER made aware of the discharge and said good to go. Pt. without distress, denies suicidal and homicidal and denies visual and auditory hallucinations. Belongings ready, discharge papers ready and pt. signed the discharge papers.
--- NOTE | 2022-11-05 09:25 | NUR ---
Pt. left the unit with belongings and escorted by staff to the lobby. Left without distress, no agitation and ambulatory. Pt. was instructed on meds to continue and verbalizes understanding and instructed to make a follow up with the primary doctor and the appointment and agreed. V/S taken: BP 142/77, RR 18, AK 85, temp 98.1 and oxygen sat 97%.
--- NOTE | 2022-11-07 11:06 | NUR ---
UR Note: RIGOBERTO received a call from KISHAN Guajardo ([phone]) and requested dc summary. Casandra HOLLEY P:[phone] F:[phone] RIGOBERTO sent discharge summary. RIGOBERTO faxed ([phone]) the clinicals.
== END 2022-11-05 09:25 | disposition home or self-care (01) | DRG 885 ==
LOC: ER 19:07 → GPS 10-28 13:49
PROVIDERS: ADMIT Psychiatry & Neurology Psychosomatic Medicine
DX: F25.0 Schizoaffective disorder, bipolar type (principal); F32.3 Major depressive disorder, single episode, severe with psychotic features; R45.851 Suicidal ideations; E44.0 Moderate protein-calorie malnutrition; F41.9 Anxiety disorder, unspecified; E88.09 Other disorders of plasma-protein metabolism, not elsewhere classified; F43.10 Post-traumatic stress disorder, unspecified; R41.9 Unspecified symptoms and signs involving cognitive functions and awareness; Z59.00 Homelessness unspecified; F10.90 Alcohol use, unspecified, uncomplicated; Z20.822 Contact with and (suspected) exposure to COVID-19
CPT/HCPCS: 36415; 80048-TC; 80053-TC; 80061-TC; 80076-TC; 85025-TC; 87081-TC; C9803; G0480; J2060; J3490

== ENCOUNTER 2023-04-08 12:35 | Emergency (ER) | payer OTHER, MEDICAID ==
[~2023-04-08] VITALS: Ht 165.1 cm; Wt 74.8 kg
[2023-04-08 14:23] LABS: BASOPHILS # (AUTO) 0.1 K/uL (0.0-0.2); BASOPHILS % (AUTO) 1.1 % (0.0-2.0); EOSINOPHILS # (AUTO) 0.5 K/uL (0.0-0.7); EOSINOPHILS % (AUTO) 5.9 % (0.0-6.0); HEMATOCRIT 44 % (39-51); HEMOGLOBIN 14.7 g/dL (13.5-17.5); LYMPHOCYTES # (AUTO) 1.7 K/uL (0.8-4.8); LYMPHOCYTES % (AUTO) 22.4 % (20.0-44.0); MEAN CORPUSCULAR HEMOGLOBIN 30 PG (26.0-33.0); MEAN CORPUSCULAR HGB CONC 33 g/dl (31.0-36.0); MEAN CORPUSCULAR VOLUME 90 fL (80-96); MONOCYTES # (AUTO) 0.8 K/uL (0.1-1.30); MONOCYTES % (AUTO) 9.8 % (2.0-12.0); NEUTROPHILS # (AUTO) 4.7 K/uL (1.8-8.9); NEUTROPHILS % (AUTO) 60.8 % (43.0-81.0); PLATELET COUNT (AUTO) 224 K/uL (150-450); RED BLOOD CELL COUNT(AUTO) 4.93 MIL/uL (4.5-6.0); RED CELL DISTRIBUTION WIDTH 14.8 % (11.5-15.0); WHITE BLOOD COUNT (AUTO) 7.8 K/uL (4.3-11.0)
[2023-04-08 14:31] LABS: CALCIUM, SERUM 9.6 mg/dL (8.5-10.1); CREATININE 0.9 mg/dL (0.6-1.3); POTASSIUM 3.8 mmol/L (3.5-5.1)
[2023-04-08 14:37] LABS: ALBUMIN 3.6 g/dL (3.4-5.0); BILIRUBIN,DIRECT 0.1 mg/dL (0.0-0.2); BILIRUBIN,TOTAL 0.6 mg/dL (0.2-1.0); SALICYLATE 1.1 mg/dL (2.8-20.0); TOTAL PROTEIN, SERUM 7.3 g/dL (6.4-8.2)
[2023-04-08 15:11] LABS: AMPHETAMINE, URINE NEGATIVE (NEGATIVE); BARBITURATE, URINE NEGATIVE (NEGATIVE); BENZODIAZEPINE, URINE NEGATIVE (NEGATIVE); COCCAINE, URINE NEGATIVE (NEGATIVE); OPIATE, URINE NEGATIVE (NEGATIVE); PHENCYCLIDINE SCREEN,URINE NEGATIVE (NEGATIVE)
[2023-04-08 15:17] LABS: CANNABINOID, URINE POSITIVE (NEGATIVE)
[2023-04-08 15:22] LABS: APPEARANCE,URINE CLEAR (CLEAR); BILIRUBIN,URINE NEGATIVE (NEGATIVE); BLOOD, URINE NEGATIVE Ery/uL (NEGATIVE); COLOR,URINE YELLOW (YELLOW); KETONES,URINE NEGATIVE (NEGATIVE); LEUKOCYTE ESTERASE ,URINE NEGATIVE (NEGATIVE); NITRITE, URINE NEGATIVE (NEGATIVE); PH,URINE 7.5 (5.0-8.0); PROTEIN,URINE NEGATIVE (NEGATIVE); UGLUCOSE NEGATIVE (NEGATIVE); UROBILINOGEN,URINE 0.2 EU/dL (0.2)
[2023-04-08 15:44] VITALS: BP 133/89; TEMP 98.1; O2SAT 98
== END 2023-04-08 15:44 | disposition home or self-care (01) ==
LOC: ER 12:53
DX: R07.89 Other chest pain (principal); F19.10 Other psychoactive substance abuse, uncomplicated; F41.9 Anxiety disorder, unspecified; F32.A Depression, unspecified; F20.9 Schizophrenia, unspecified; Z88.8 Allergy status to other drugs, medicaments and biological substances
CPT/HCPCS: 36415; 71045-TC; 80048-TC; 80076-TC; 84484-TC; 85025-TC; G0480